=== PATIENT | male | born 1975 | race Caucasian/White ===

== ENCOUNTER 2019-05-18 20:18 | Observation (INO) ==
[2019-05-19 06:31] LABS: Troponin I < 0.03 ng/mL (< 0.04)
[2019-05-19 06:38] LABS: Hematocrit 47.4 % (37.5-50.1); Hemoglobin 16.6 g/dL (12.9-16.9); Mean Corpuscular Hemoglobin 28.3 pg (28.0-33.3); Mean Corpuscular Volume 80.7 fL (83.0-100.0); Mean Platelet Volume 11.1 fL (9.4-12.4); Platelet Count 177 K/mcL (140-400); Red Blood Count 5.87 M/mcL (4.19-5.50); Red Cell Distribution Width 14.4 % (11.5-14.5); White Blood Count 8.5 K/mcL (4.3-11.1)
[2019-05-19 06:49] LABS: Alanine Aminotransferase 12 Units/L (7-52); Albumin 3.9 g/dL (3.5-5.7); Albumin/Globulin Ratio 1.1 (1.1-2.2); Alkaline Phosphatase 122 Units/L (34-104); Aspartate Amino Transferase 17 Units/L (13-39); BUN/Creatinine Ratio 31 (6-26); Bilirubin,Total 1.6 mg/dL (0.3-1.0); Blood Urea Nitrogen 44 mg/dL (6-20); Calcium 9.7 mg/dL (8.6-10.3); Carbon Dioxide 30 mEq/L (23-29); Chloride 95 mEq/L (98-107); Globulin 3.4 g/dL (2.4-3.5); Glucose 254 mg/dL (70-105); Magnesium 1.6 mg/dL (1.6-2.6); Osmolality,Calculated 300 (280-300); Phosphorous 3.4 mg/dL (2.7-4.5); Potassium 3.1 mEq/L (3.5-5.1); Sodium 135 mEq/L (136-145); Total Protein 7.3 g/dL (6.4-8.9); eGFR For African Americans > 60 (> 60); eGFR For Non-African Americans 55 (> 60)
[2019-05-19] MEDS ORDERED: metOLazone 2.5 MG TABLET PO PRN (07:27)
[2019-05-19] MEDS ORDERED: Fluticasone Propionate Nasal 50 MCG/SPRAY BOTTLE NS PRN (07:27)
[2019-05-19] MEDS ORDERED: D5% in Water 1,000 ML IVC PRN (07:30)
[2019-05-19] MEDS ORDERED: Dextrose Gel 15 GM/37.5 ML TUBE PO PRN ×2 (07:30)
[2019-05-19] MEDS ORDERED: *HR* Dextrose 50 % in Water (Syg) 50 ML SYRINGE IVP PRN (07:30)
[2019-05-19] MEDS ORDERED: NON-FORMULARY MEDICATION 1 EACH EACH (Insulin Aspart [Novolog Flexpen] 5 UNIT) SQ SCH (07:30)
[2019-05-19] MEDS ORDERED: Naloxone 0.4 MG/ML INJ IVP PRN ×2 (07:32→07:33)
[2019-05-19] MEDS ORDERED: Acetaminophen 325 MG TABLET PO PRN (07:33)
[2019-05-19] MEDS ORDERED: *HR* Promethazine 25 MG/ML VIAL IVP PRN (07:33)
[2019-05-19] MEDS ORDERED: Mag Hydrox/Al Hydrox/Simeth 30 ML UDC PO PRN (07:33)
[2019-05-19] MEDS ORDERED: Ondansetron 4 MG/2 ML VIAL IVP PRN (07:33)
[2019-05-19] MEDS ORDERED: traMADol 50 MG TABLET PO PRN (07:33)
--- NOTE | 2019-05-19 07:52 | Internal Med History&Physical ---
Date of Encounter: 05/19/19 Time of Encounter: 07:45 Internal Medicine - H&P: HPI Admitted From: Home Plans for Post Hospital Care: Home History of present illness: Mr. Stewart is a 43 year old male with past medical history of congenital heart disease status post multiple cardiac surgery, congestive heart failure, chronic atrial fibrillation, gout, and diabetes mellitus presented with acute onset of chest pain. Patient was seen last month at the [facility] for the similar complaints and was discharged home. He reported 2 days ago when he was camping with family, he suddenly developed chills and lightheadedness, his heart started to ache. Those symptoms resolved 15 minutes later with rest. Next morning, when patient woke up, fever, chills, lightheadedness, and the chest pain recurred, he decided to go to ED for evaluation. In the [facility] ED, his vital signs were stable, first set of troponin was negative, EKG showed atrial fibrillation, a chest x-ray showed no acute abnormalities, patient was transferred here. Upon arrival to floor, patient denies any chest pain, he remained atrial fibrillation on the telemetry tracing. Labs are significant for elevated BUN/creatinine, negative troponin. Patient is admitted for further evaluation. CODE STATUS was full code after discussion with patient and family. 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 Psychiatric history: anxiety - Past Surgical History Additional surgical history: open heart sx 4 times, loop recorder, detranspertation of great vessel, glcoma - Social History Smoking Status: Never smoker Smokeless Tobacco Status: Yes Alcohol use: rarely Drug use: none - Family History Mother Living Status: Age at : 56 Cause of : cancer Father Living Status: Unknown Internal Medicine - H&P: Meds Brimonidine 0.2% [Alphagan] 1 drop RIGHT EYE TID 04/09/19 [History] Cetirizine HCl [Zyrtec] 10 mg PO DAILY 04/09/19 [History] Colchicine [Colcrys] 0.6 mg PO DAILY 04/09/19 [History] Docusate [Colace] 100 mg PO BID PRN 04/09/19 [History] Duloxetine HCl [Cymbalta] 120 mg PO DAILY 04/09/19 [History] Febuxostat [Uloric] 40 mg PO DAILY 04/09/19 [History] Ferrous Sulfate [Iron] 325 mg PO DAILY 04/09/19 [History] Fluticasone Propionate Nasal [Flonase] 2 spray NS DAILY PRN 04/09/19 [History] Insulin ASPART [Novolog Flexpen] 5 unit SQ TIDAC 04/09/19 [History] Insulin Glargine,Hum.rec.anlog [Lantus Solostar] 50 unit SQ HS 04/09/19 [History] Liraglutide [Victoza 2-Fazal] 1.8 mg SQ DAILY 04/09/19 [History] Pantoprazole Sodium [Protonix] 40 mg PO BID 04/09/19 [History] Potassium Chloride [Klor-Con 10] 10 mcg PO DAILY 04/09/19 [History] Pregabalin [Lyrica] 100 mg PO DAILY 04/09/19 [History] Simvastatin [Zocor] 40 mg PO HS 04/09/19 [History] Sotalol HCl [Betapace] 80 mg PO BID 04/09/19 [History] Torsemide [Demadex] 40 mg PO DAILY 04/09/19 [History] Warfarin [Coumadin] 5 mg PO DAILY 04/09/19 [History] metOLazone [Zaroxolyn] 1 tab PO PRN PRN 04/09/19 [History] Allergy/AdvReac Type Severity Reaction Status Date / Time cephalexin [From Keflex] Allergy Hives Verified 04/09/19 18:30 Penicillins Allergy Hives Verified 04/09/19 18:30 All Systems PM: A 10-system review of systems was performed and is negative for pertinent findings except as documented above in the HPI. Review of systems: REVIEW OF SYSTEMS: CONSTITUTIONAL: No weight loss, fever, chills, weakness or fatigue. HEENT: Eyes: No visual loss, blurred vision, double vision or yellow sclerae. Ears, Nose, Throat: No hearing loss, sneezing, congestion, runny nose or sore throat. SKIN: No rash or itching. CARDIOVASCULAR: No chest pain, chest pressure or chest discomfort. No palpitations or edema. RESPIRATORY: No shortness of breath, cough or sputum. GASTROINTESTINAL: No anorexia, nausea, vomiting or diarrhea. No abdominal pain or blood. GENITOURINARY: No dysuria, urgency, or frequency. NEUROLOGICAL: No headache, dizziness, syncope, paralysis, ataxia, numbness or tingling in the extremities. No change in bowel or bladder control. MUSCULOSKELETAL: No muscle, back pain, joint pain or stiffness. HEMATOLOGIC: No anemia, bleeding or bruising. LYMPHATICS: No enlarged nodes. No history of splenectomy. PSYCHIATRIC: No history of depression or anxiety. ENDOCRINOLOGIC: No reports of sweating, cold or heat intolerance. No polyuria or polydipsia. - Constitutional Vitals: Temp Pulse Resp BP Pulse Ox 97.5 F L 87 16 116/66 100 05/19/19 07:23 05/19/19 07:23 05/19/19 07:23 05/19/19 07:23 05/19/19 07:23 General appearance: Present: A&O X 3 Exam: PHYSICAL EXAMINATION: GENERAL APPEARANCE: The patient is alert, oriented and in no acute distress. HEENT: Head is normocephalic. The sinuses are nontender. Pupils are equal and reactive. The nares are patent. Oropharynx clear without lesions. NECK: Supple without lymphadenopathy. HEART: Regular rate and rhythm. LUNGS: No crackles or wheezes are heard. ABDOMEN: Soft, nontender, nondistended with good bowel sounds heard. Inguinal area is normal. EXTREMITIES: Without cyanosis, clubbing or edema. NEUROLOGICAL: Gross nonfocal. SKIN: Warm and dry without any rash. Internal Med - H&P Results - Labs CBC & Chem 7: 05/19/19 05:37 05/19/19 05:38 Labs: Short CBC 05/19/19 Range/Units 05:37 WBC 8.5 (4.3-11.1) K/mcL Hgb 16.6 (12.9-16.9) g/dL Hct 47.4 (37.5-50.1) % Plt Count 177 (140-400) K/mcL BMP 05/19/19 05:38 Sodium 135 L Potassium 3.1 L Chloride 95 L Carbon Dioxide 30 H BUN 44 H Creatinine 1.41 H Glucose 254 H Calcium 9.7 Cardiac Enzymes 05/19/19 Range/Units 05:38 Troponin I < 0.03 (< 0.04) ng/mL Liver Function 05/19/19 Range/Units 05:38 Total Bilirubin 1.6 H (0.3-1.0) mg/dL AST 17 (13-39) Units/L ALT 12 (7-52) Units/L Alkaline Phosphatase 122 H (34-104) Units/L Albumin 3.9 (3.5-5.7) g/dL - Assessment and Plan (1) Chest pain Current Visit: Yes Status: Acute Assessment and plan: 43-year-old gentleman with 3 of congenital heart disease status post multiple cardiac surgery, diabetes mellitus, chronic atrial fibrillation, CHF and gout p resented with acute onset of left-sided chest pain. Patient denies history of CAD, endorsed history of CVA. 2 sets of troponin was negative. EKG showed chronic atrial fibrillation. Due to his risk factors for cardiovascular disease, further cardiac workup is warranted. Echocardiogram and it can recall stress nuclear test ordered. Continue telemetry monitoring and EKG as needed. Qualifiers: Chest pain type: unspecified Qualified Code(s): R07.9 - Chest pain, unspecified (2) PAPA (acute kidney injury) Current Visit: Yes Status: Acute Assessment and plan: Mild PAPA, most likely caused by over-diuresis, torsemide dose decreased, continue monitoring renal function panel. (3) Hypokalemia Current Visit: Yes Status: Acute Assessment and plan: Replaced, repeat labs in the morning. (4) CHF (congestive heart failure), NYHA class II Current Visit: No Status: Chronic Assessment and plan: Euvolemic on physical exam, mild acute renal impairment, torsemide dose decreased, continue monitoring volume status. Qualifiers: Congestive heart failure type: diastolic Congestive heart failure chronicity: chronic Qualified Code(s): I50.32 - Chronic diastolic (congestive) heart failure (5) Congenital heart defect Current Visit: No Status: Chronic Assessment and plan: Stable, continue monitoring. (6) Gout Current Visit: No Status: Chronic Assessment and plan: No acute gout flare, continue home medications. Qualifiers: Gout site: unspecified site Gout etiology: unspecified cause Chronicity: chronic Presence of tophus: without tophus Qualified Code(s): M1A.9XX0 - Chronic gout, unspecified, without tophus (tophi) (7) Atrial fibrillation Current Visit: No Status: Chronic Assessment and plan: Rate controlled, continue sotalol and Coumadin, pharmacy to dose Coumadin daily. Qualifiers: Atrial fibrillation type: permanent Qualified Code(s): I48.21 - Permanent atrial fibrillation (8) DVT prophylaxis Current Visit: Yes Status: Acute Assessment and plan: Patient on Coumadin. - Time Spent With Patient Total time spent is greater than 50% in coordination of care (as documented) at patient's floor/unit and/or counseling patient: Greater than 35 minutes
[2019-05-19 08:24] LABS: INR 2.6; Prothrombin Time 29.4 Seconds (9.4-12.1)
[2019-05-19] MEDS ORDERED: Regadenoson 0.4 MG/5 ML SYRINGE IVP ONE (08:55)
[2019-05-19] MEDS ORDERED: Torsemide 20 MG TABLET PO SCH (09:00)
[2019-05-19] MEDS: Pregabalin 50 MG CAPSULE PO SCH (09:48)
[2019-05-19] MEDS: Insulin LISPRO 300 UNITS/3 ML VIAL SQ SCH ×5 (09:48→17:18)
[2019-05-19] MEDS: Loratadine 10 MG TABLET PO SCH (09:48)
[2019-05-19] MEDS: (Febuxostat [Uloric] 40 MG) PO SCH (09:48)
[2019-05-19] MEDS: Torsemide 20 MG TABLET PO SCH (09:48)
[2019-05-19] MEDS: Colchicine 0.6 MG TABLET PO SCH (09:48)
[2019-05-19] MEDS ORDERED: Perflutren Lipid Microsphere 1.3 ML in 0.9 % Sodium Chloride 8.7 ML IVP ONE (18:18)
[2019-05-19] MEDS ORDERED: Insulin LISPRO 300 UNITS/3 ML VIAL SQ SCH (21:00)
[2019-05-19] MEDS ORDERED: Lacri-Lube 3.5 GM TUBE BOTH EYES SCH (21:00)
[2019-05-19] MEDS ORDERED: Insulin DETEMIR 100 UNIT/ML X5UNITS SQ SCH ×2 (21:00→23:30)
[2019-05-19] MEDS: Artificial Tears SOLN 15 ML BOTTLE BOTH EYES SCH (22:41)
[2019-05-19] MEDS ORDERED: *HR* Warfarin 5 MG TABLET PO ONE (23:45)
[2019-05-20 05:53] LABS: Basophils # 0.1 K/mcL (0.0-0.2); Eosinophils # 0.4 K/mcL (0.0-0.6); Eosinophils % 4.7 %; Hematocrit 46.7 % (37.5-50.1); Immature Granulocytes % 0.4 % (0-4); Lymphocytes % 31.7 %; Mean Corpuscular HGB Conc 34.3 g/dL (31.6-35.5); Mean Corpuscular Hemoglobin 27.7 pg (28.0-33.3); Mean Corpuscular Volume 80.8 fL (83.0-100.0); Mean Platelet Volume 11.1 fL (9.4-12.4); Monocytes # 0.7 K/mcL (0.0-1.3); Monocytes % 7.7 %; Neutrophils # 5.1 K/mcL (1.6-8.9); Platelet Count 182 K/mcL (140-400); Red Blood Count 5.78 M/mcL (4.19-5.50); Red Cell Distribution Width 14.4 % (11.5-14.5); Segmented Neutrophils % 54.5 %; White Blood Count 9.3 K/mcL (4.3-11.1)
[2019-05-20 05:59] LABS: INR 2.3; Prothrombin Time 25.9 Seconds (9.4-12.1)
[2019-05-20 06:12] LABS: Alanine Aminotransferase 14 Units/L (7-52); Albumin 3.8 g/dL (3.5-5.7); Albumin/Globulin Ratio 1.2 (1.1-2.2); Alkaline Phosphatase 128 Units/L (34-104); Aspartate Amino Transferase 18 Units/L (13-39); BUN/Creatinine Ratio 31 (6-26); Bilirubin,Total 1.2 mg/dL (0.3-1.0); Blood Urea Nitrogen 36 mg/dL (6-20); Calcium 9.6 mg/dL (8.6-10.3); Carbon Dioxide 26 mEq/L (23-29); Chloride 98 mEq/L (98-107); Globulin 3.2 g/dL (2.4-3.5); Glucose 229 mg/dL (70-105); Magnesium 1.7 mg/dL (1.6-2.6); Osmolality,Calculated 296 (280-300); Phosphorous 3.4 mg/dL (2.7-4.5); Potassium 3.3 mEq/L (3.5-5.1); Sodium 135 mEq/L (136-145); eGFR For African Americans > 60 (> 60); eGFR For Non-African Americans > 60 (> 60)
[2019-05-20 07:24] VITALS: BP 110/71
[2019-05-20] MEDS: Insulin LISPRO 300 UNITS/3 ML VIAL SQ SCH ×2 (08:12→10:06)
--- NOTE | 2019-05-20 09:16 | Discharge Summary ---
- NOTES TO OUTPATIENT PROVIDER Notes to Outpatient Provider: f/u with PCP within 1-2 weeks. Date of Encounter: 05/20/19 Time of Encounter: 09:12 - Discharge Diagnosis (1) Chest pain Priority: Primary Status: Acute Qualifiers: Chest pain type: unspecified Qualified Code(s): R07.9 - Chest pain, unspecified (2) PAPA (acute kidney injury) Priority: Primary Status: Resolved (3) Hypokalemia Priority: Primary Status: Acute (4) CHF (congestive heart failure), NYHA class II Priority: Secondary Status: Chronic Qualifiers: Congestive heart failure type: diastolic Congestive heart failure chronicity: chronic Qualified Code(s): I50.32 - Chronic diastolic (congestive) heart failure (5) Congenital heart defect Priority: Secondary Status: Chronic (6) Gout Priority: Secondary Status: Chronic Qualifiers: Gout site: unspecified site Gout etiology: unspecified cause Chronicity: chronic Presence of tophus: without tophus Qualified Code(s): M1A.9XX0 - Chronic gout, unspecified, without tophus (tophi) (7) Atrial fibrillation Priority: Secondary Status: Chronic Qualifiers: Atrial fibrillation type: permanent Qualified Code(s): I48.21 - Permanent atrial fibrillation (8) DVT prophylaxis Priority: Primary Status: Acute Hospital course: Mr. Stewart is a 43 year old male with past medical history of congenital heart disease status post multiple cardiac surgery, congestive heart failure, chronic atrial fibrillation, gout, and diabetes mellitus presented with acute onset of chest pain. Patient was seen last month at the [facility] for the similar compla ints and was discharged home. He reported 2 days ago when he was camping with family, he suddenly developed chills and lightheadedness, his heart started to ache. Those symptoms resolved 15 minutes later with rest. Next morning, when patient woke up, fever, chills, lightheadedness, and the chest pain recurred, he decided to go to ED for evaluation. In the [facility] ED, his vital signs were stable, first set of troponin was negative, EKG showed atrial fibrillation, a chest x-ray showed no acute abnormalities, patient was transferred here. Upon arrival to floor, patient denies any chest pain, he remained atrial fibrillation on the telemetry tracing. Labs are significant for elevated BUN/creatinine, negative troponin. Patient is admitted for further evaluation. Patient underwent stress nuclear test which was reportedly negative for ischemia or infarct. His chest pain resolved after admission. PAPA resolved after adjustment of diuretics. Patient was discharged home today, dose of torsemide was decreased from 40 mg a day to 20 g daily. He will follow-up with PCP within 1-2 weeks. Discharge discussed with: patient Time spent discussing smoking cessation with patient: more than 10 minutes - Time Spent with Patient Total time spent providing and/or coordinating discharge services: Time spent: Greater than 30 minutes - Discharge Medications Prescriptions: New Torsemide [Demadex] 20 mg PO DAILY #30 tablet Continued Warfarin [Coumadin] 7.5 mg PO TUTHSA Sotalol [Betapace] 80 mg PO BID Insulin Glargine,Hum.rec.anlog [Basaglar Kwikpen U-100] 50 units SQ HS Ferrous Sulfate 325 mg PO DAILY Carboxymethylcellulos/Glycerin [Refresh Optive Eye Drops] 1 drop BOTH EYES DAILY PRN PRN Reason: Dry Eye(S) Potassium Chloride [Klor-Con 10] 10 mcg PO DAILY Simvastatin [Zocor] 40 mg PO HS Duloxetine HCl [Cymbalta] 120 mg PO DAILY Insulin ASPART [Novolog Flexpen] 10 unit SQ TIDAC Liraglutide [Victoza 2-Fazal] 1.8 mg SQ DAILY Fluticasone Propionate Nasal [Flonase] 2 spray NS DAILY PRN PRN Reason: Allergic Symptoms Brimonidine 0.2% [Alphagan] 1 drop RIGHT EYE Q12H Docusate [Colace] 100 mg PO BID PRN PRN Reason: Constipation Febuxostat [Uloric] 40 mg PO DAILY Pregabalin [Lyrica] 100 mg PO DAILY metOLazone [Zaroxolyn] 1 tab PO PRN PRN PRN Reason: WEIGHT GAIN Colchicine [Colcrys] 0.6 mg PO DAILY Cetirizine HCl [Zyrtec] 10 mg PO DAILY Discontinued Torsemide [Demadex] 40 mg PO DAILY No Action Pantoprazole Sodium [Protonix] 40 mg PO BID Warfarin [Coumadin] 5 mg PO SUMOWEFR Home Medications: Brimonidine 0.2% [Alphagan] 1 drop RIGHT EYE Q12H 04/09/19 [History] Cetirizine HCl [Zyrtec] 10 mg PO DAILY 04/09/19 [History] Colchicine [Colcrys] 0.6 mg PO DAILY 04/09/19 [History] Docusate [Colace] 100 mg PO BID PRN 04/09/19 [History] Duloxetine HCl [Cymbalta] 120 mg PO DAILY 04/09/19 [History] Febuxostat [Uloric] 40 mg PO DAILY 04/09/19 [History] Fluticasone Propionate Nasal [Flonase] 2 spray NS DAILY PRN 04/09/19 [History] Insulin ASPART [Novolog Flexpen] 10 unit SQ TIDAC 04/09/19 [History] Liraglutide [Victoza 2-Fazal] 1.8 mg SQ DAILY 04/09/19 [History] Potassium Chloride [Klor-Con 10] 10 mcg PO DAILY 04/09/19 [History] Pregabalin [Lyrica] 100 mg PO DAILY 04/09/19 [History] Simvastatin [Zocor] 40 mg PO HS 04/09/19 [History] Warfarin [Coumadin] 5 mg PO SUMOWEFR 04/09/19 [History] metOLazone [Zaroxolyn] 1 tab PO PRN PRN 04/09/19 [History] Carboxymethylcellulos/Glycerin [Refresh Optive Eye Drops] 1 drop BOTH EYES DAILY PRN 05/19/19 [History] Ferrous Sulfate 325 mg PO DAILY 05/19/19 [History] Insulin Glargine,Hum.rec.anlog [Basaglar Kwikpen U-100] 50 units SQ HS 05/19/19 [History] Pantoprazole Sodium [Protonix] 40 mg PO BID 05/19/19 [History] Sotalol [Betapace] 80 mg PO BID 05/19/19 [History] Warfarin [Coumadin] 7.5 mg PO TUTHSA 05/19/19 [History] Torsemide [Demadex] 20 mg PO DAILY #30 tablet 05/20/19 [Rx] Allergies/Adverse Reactions: Allergy/AdvReac Type Severity Reaction Status Date / Time cephalexin [From Keflex] Allergy Hives Verified 05/19/19 10:05 Penicillins Allergy Hives Verified 05/19/19 10:05 Date of admission: 05/18/19 21:19 Primary care physician: Ana Escalona CNP Anticipated date of discharge: 05/20/19 - Constitutional Vitals: Temp Pulse Resp BP Pulse Ox 97.6 F 69 16 110/71 100 05/20/19 07:23 05/20/19 07:23 05/20/19 07:23 05/20/19 07:23 05/20/19 07:23 General appearance: Present: A&O X 3 Exam: PHYSICAL EXAMINATION: GENERAL APPEARANCE: The patient is alert, oriented and in no acute distress. HEENT: Head is normocephalic. The sinuses are nontender. Pupils are equal and reactive. The nares are patent. Oropharynx clear without lesions. NECK: Supple without lymphadenopathy. HEART: Regular rate and rhythm. LUNGS: No crackles or wheezes are heard. ABDOMEN: Soft, nontender, nondistended with good bowel sounds heard. Inguinal area is normal. EXTREMITIES: Without cyanosis, clubbing or edema. NEUROLOGICAL: Gross nonfocal. SKIN: Warm and dry without any rash. - Patient Status Disposition: Home, Self-Care Condition: Fair Functional capacity at discharge: independent ambulation Overall status at discharge: patient is back to baseline - Discharge Instructions Follow Up With: Ana Escalona CNP [Primary Care Provider] - 05/24/19 9:45 am - Diet and Activity Activity: increase activity as tolerated Diet: low fat, low cholesterol, low salt diet
[2019-05-20] MEDS: Loratadine 10 MG TABLET PO SCH (10:07)
[2019-05-20] MEDS: Artificial Tears SOLN 15 ML BOTTLE BOTH EYES SCH (10:07)
[2019-05-20] MEDS: Colchicine 0.6 MG TABLET PO SCH (10:07)
[2019-05-20] MEDS: Pregabalin 50 MG CAPSULE PO SCH (10:08)
[2019-05-20] MEDS: (Febuxostat [Uloric] 40 MG) PO SCH (10:08)
[2019-05-20] MEDS: Torsemide 20 MG TABLET PO SCH (10:13)
[2019-05-20] MEDS ORDERED: Warfarin perPT PO PRN (18:00)
== END 2019-05-20 10:35 | disposition home or self-care (01) ==
LOC: 3BNU
PROVIDERS: ADMIT Internal Medicine; ATTEND Internal Medicine